=== PATIENT | male | born 1990 | race Asian ===

== ENCOUNTER 2017-10-20 23:58 | Observation (INO) | payer OTHER ==
[~2017-10-20] VITALS: Ht 188 cm; Wt 141.7 kg
[2017-10-21] VITALS (7 sets, daily range): BP systolic 114–160; BP diastolic 61–92; TEMP 97.5–98.2; Ht 188 cm; Wt 141.7 kg
[2017-10-21 01:03] LABS: PLATELET COUNT 164 K/uL (142-355)
[2017-10-21 01:36] LABS: PARTIAL THROMBOPLASTIN TIME 24.2 SECONDS (24.5-33.6)
[2017-10-21 01:54] LABS: POTASSIUM 4.3 mmol/L (3.6-5.2)
[2017-10-21] MEDS ORDERED: LISITAB PO (04:43)
[2017-10-21] MEDS ORDERED: CLON0.5T36 PO (04:44)
[2017-10-21] MEDS ORDERED: LYRICA100 MG OR (04:44)
[2017-10-21] MEDS ORDERED: PERCOCET1 TA3 PO (04:45)
[2017-10-21] MEDS ORDERED: VENLAFAXINE150 M1 PO (04:46)
[2017-10-21] MEDS ORDERED: PANTOPRAZOLE 40MG TA PO (04:46)
[2017-10-21] MEDS ORDERED: AMLODIPINE BESYLATE PO (04:46)
[2017-10-21] MEDS ORDERED: VICTOZA18 MG/3 ML SC (04:47)
[2017-10-21] MEDS ORDERED: TRESIBA FL100 UNIT/M SC (04:47)
== END 2017-10-21 15:30 | disposition home or self-care (01) ==
LOC: ED 23:58 → MED/SURG 10-21 02:48
DX: R07.89 Other chest pain (principal); R73.9 Hyperglycemia, unspecified
CPT/HCPCS: 36415; 80053; 80061; 82550; 82553; 84484; 85027; 85379; 85610; 85730; 93005; 96372; 96374; 96375; 99220; 99284; G0378; J1650; J1815; J1885; J2270

== ENCOUNTER 2017-12-03 12:31 | Outpatient (CLI) | payer OTHER ==
[~2017-12-03 12:31] MED LIST: AMLODIPINE BESYLATE PO; CLON0.5T36 PO; LISITAB PO; LYRICA100 MG OR; PANTOPRAZOLE 40MG TA PO; PERCOCET1 TA3 PO; TRESIBA FL100 UNIT/M SC; VENLAFAXINE150 M1 PO; VICTOZA18 MG/3 ML SC
== END 2017-12-03 20:00 | disposition home or self-care (01) ==
LOC: US 12:31
DX: M79.605 Pain in left leg (principal)

== ENCOUNTER 2018-09-30 09:10 | Day surgery (SDC) | payer OTHER ==
[~2018-09-30] VITALS: Ht 30.5 cm; Wt 0.5 kg
[2018-09-30 10:17] LABS: PLATELET COUNT 189 K/uL (142-355)
[2018-09-30 10:20] LABS: POTASSIUM 3.3 mmol/L (3.6-5.2)
== END 2018-09-30 12:45 | disposition home or self-care (01) ==
LOC: ASC 09:10 → OR 09:10
PROVIDERS: Student in an Organized Health Care Education/Training Program
PROC: 0D9P0ZZ Drainage of Rectum, Open Approach (ICD-10-PCS; principal; 2018-09-30)
PROC: 0DJD8ZZ Inspection of Lower Intestinal Tract, Via Natural or Artificial Opening Endoscopic (ICD-10-PCS; 2018-09-30)
DX: K61.1 Rectal abscess (principal); K60.4 Rectal fistula
CPT/HCPCS: 80053; 85027; 87070; 87076; 87205; J1885; J2001; J2250; J2405; J2704; J3010

== ENCOUNTER 2018-11-27 12:29 | Emergency (ER) | payer OTHER ==
[~2018-11-27] VITALS: Ht 188 cm; Wt 145.2 kg
[2018-11-27 13:06] LABS: PLATELET COUNT 141 K/uL (142-355)
[2018-11-27 14:19] LABS: POTASSIUM 3.7 mmol/L (3.6-5.2)
[2018-11-27 15:20] VITALS: BP 155/91; TEMP 98.5
== END 2018-11-27 15:20 | disposition home or self-care (01) ==
LOC: ED 12:29
PROVIDERS: Emergency Medicine
DX: R07.89 Other chest pain (principal); J45.909 Unspecified asthma, uncomplicated; R79.0 Abnormal level of blood mineral; E11.9 Type 2 diabetes mellitus without complications; R06.02 Shortness of breath; R00.0 Tachycardia, unspecified
CPT/HCPCS: 36415; 80053; 82550; 82553; 83735; 83880; 84484; 85027; 85379; 93005; 94664; 96365; 96375; 99284; J1815; J1885; J1940; J3475

== ENCOUNTER 2019-03-11 16:03 | Emergency (ER) | payer OTHER ==
[~2019-03-11] VITALS: Ht 188 cm; Wt 137.9 kg
[2019-03-11 16:10] VITALS: TEMP 98.9
[2019-03-11] MEDS ORDERED: VENL37.511 PO (16:44)
[2019-03-11] MEDS ORDERED: DEPO-TESTOS100 MG/M1 IM (16:47)
[2019-03-11] MEDS ORDERED: LYRICA150 MG PO (16:47)
[2019-03-11] MEDS ORDERED: XANAX XR1 MG PO (16:48)
[2019-03-11] MEDS ORDERED: OXYCODONE HCL E20 MG PO (16:48)
[2019-03-11] MEDS ORDERED: LISI20TA11 PO (16:49)
[2019-03-11] MEDS ORDERED: TRAMADOL HYDROC50 MG PO (16:49)
[2019-03-11 17:00] LABS: PLATELET COUNT 116 K/uL (142-355)
[2019-03-11 17:06] LABS: POTASSIUM 3.8 mmol/L (3.6-5.2)
[2019-03-11 18:32] VITALS: BP 135/76
== END 2019-03-11 18:32 | disposition home or self-care (01) ==
LOC: ED 16:03
PROVIDERS: Emergency Medicine
DX: I10 Essential (primary) hypertension (principal); R00.0 Tachycardia, unspecified
CPT/HCPCS: 80053; 85027; 93005; 99283

== ENCOUNTER 2019-05-04 01:00 | Observation (INO) | payer OTHER ==
[2019-05-04] VITALS (7 sets, daily range): BP systolic 116–161; BP diastolic 63–97; TEMP 97.3–98.1; Ht 188 cm; Wt 129.8 kg
[~2019-05-04] VITALS: Ht 188 cm; Wt 129.8 kg
[~2019-05-04 01:00] MED LIST changes: +DEPO-TESTOS100 MG/M1 IM; +LISI20TA11 PO; +LYRICA150 MG PO; +OXYCODONE HCL E20 MG PO; +TRAMADOL HYDROC50 MG PO; +VENL37.511 PO; +XANAX XR1 MG PO
[2019-05-04 01:51] LABS: PLATELET COUNT 118 K/uL (142-355)
[2019-05-04 02:45] LABS: POTASSIUM 3.9 mmol/L (3.6-5.2); SODIUM 134 mmol/L (136-145)
[2019-05-04 05:38] LABS: POTASSIUM 3.4 mmol/L (3.6-5.2)
[2019-05-04 06:23] LABS: PLATELET COUNT 115 K/uL (142-355)
== END 2019-05-05 05:45 | disposition home or self-care (01) ==
LOC: ED 01:00 → MED/SURG 03:09
PROVIDERS: Family Medicine; ADMIT Hospitalist
DX: R53.1 Weakness (principal); R42 Dizziness and giddiness; I10 Essential (primary) hypertension; I95.89 Other hypotension; D72.828 Other elevated white blood cell count; E10.65 Type 1 diabetes mellitus with hyperglycemia
CPT/HCPCS: 36415; 36600; 80048; 80053; 80307; 80320; 81000; 81002; 82550; 82805; 83036; 83605; 83880; 84484; 85027; 85610; 85730; 87040; 93005; 96360; 96361; 96365; 96372; 96374; 96375; 99220; 99284; G0378; J1650; J1815; J1885; J2405

== ENCOUNTER 2019-06-08 09:39 | Outpatient (CLI) | payer OTHER | END 2019-06-08 21:07 | disposition home or self-care (01) | LOC: RAD 09:39 | DX: M54.5 Low back pain (principal); F33.3 Major depressive disorder, recurrent, severe with psychotic symptoms; R45.851 Suicidal ideations; F41.8 Other specified anxiety disorders; M54.2 Cervicalgia; E11.9 Type 2 diabetes mellitus without complications; I11.0 Hypertensive heart disease with heart failure; M19.90 Unspecified osteoarthritis, unspecified site; J44.9 Chronic obstructive pulmonary disease, unspecified; I50.9 Heart failure, unspecified ==

== ENCOUNTER 2020-12-16 09:42 | Outpatient (CLI) | payer OTHER ==
[2020-12-16 10:14] LABS: PLATELET COUNT 112 K/uL (142-355)
== END 2020-12-16 22:55 | disposition home or self-care (01) ==
LOC: LABW 09:42
PROVIDERS: ATTEND Family Medicine
DX: R53.83 Other fatigue (principal)
CPT/HCPCS: 36415; 84153; 84402; 84403; 85027; 86850; 86900; 86901

== ENCOUNTER 2021-02-21 09:07 | Outpatient (CLI) | payer OTHER | END 2021-02-21 19:18 | disposition home or self-care (01) | LOC: RAD 09:07 | PROVIDERS: ATTEND Internal Medicine | DX: M54.2 Cervicalgia (principal); M54.5 Low back pain; E11.9 Type 2 diabetes mellitus without complications; M06.9 Rheumatoid arthritis, unspecified; G47.9 Sleep disorder, unspecified; I10 Essential (primary) hypertension; F41.8 Other specified anxiety disorders; G62.9 Polyneuropathy, unspecified; G47.30 Sleep apnea, unspecified; K21.9 Gastro-esophageal reflux disease without esophagitis ==

== ENCOUNTER 2021-12-14 19:56 | Emergency (ER) | payer OTHER ==
[~2021-12-14] VITALS: Ht 188 cm; Wt 136.1 kg
[2021-12-14 21:47] LABS: PLATELET COUNT 163 K/uL (142-355); POTASSIUM 3.9 mmol/L (3.6-5.2)
[2021-12-14] MEDS ORDERED: ONDA4TAB3 PO (23:23)
[2021-12-14] MEDS ORDERED: CIPRO500 MG PO (23:23)
[2021-12-14 23:30] VITALS: BP 122/86; TEMP 99.1
== END 2021-12-14 23:30 | disposition home or self-care (01) ==
LOC: ED 19:56
PROVIDERS: Emergency Medicine
DX: K52.89 Other specified noninfective gastroenteritis and colitis (principal); D72.828 Other elevated white blood cell count
CPT/HCPCS: 36415; 80053; 81000; 84484; 85027; 93005; 99283

== ENCOUNTER 2022-06-13 19:27 | Emergency (ER) | payer OTHER ==
[~2022-06-13] VITALS: Ht 188 cm; Wt 136.1 kg
[~2022-06-13 19:27] MED LIST changes: +CIPRO500 MG PO; +ONDA4TAB3 PO
[2022-06-13 19:37] VITALS: TEMP 98.4
[2022-06-13 19:50] LABS: PLATELET COUNT 261 K/uL (142-355)
[2022-06-13 20:04] LABS: POTASSIUM 3.4 mmol/L (3.6-5.2)
[2022-06-13 20:08] LABS: PARTIAL THROMBOPLASTIN TIME 26.7 SECONDS (24.5-33.6)
[2022-06-13 22:35] VITALS: BP 121/78
== END 2022-06-13 22:35 | disposition home or self-care (01) ==
LOC: ED 19:27
PROVIDERS: Emergency Medicine
DX: F41.8 Other specified anxiety disorders (principal); E87.3 Alkalosis; D72.828 Other elevated white blood cell count; R06.02 Shortness of breath; Z79.899 Other long term (current) drug therapy
CPT/HCPCS: 36600; 80053; 80307; 81002; 82805; 83880; 84484; 85027; 85379; 85610; 85730; 93005; 96360; 96374; 96376; 99284; J2270